=== PATIENT | male | born 2000 | race Caucasian/White ===

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

== ENCOUNTER 2020-03-02 19:50 | Emergency (ER) | payer OTHER ==
[~2020-03-02] VITALS: Ht 177.8 cm; Wt 63.9 kg
[~2020-03-02 19:50] MED LIST: NAPR-683 PO
[2020-03-02 19:58] VITALS: BP 108/70
--- NOTE | 2020-03-02 21:01 | PHYS DOC ---
Past History Past Medical History: No Pertinent History (JERAD WOLF APRN) Past Surgical History: No Surgical History (JERAD WOLF APRN) Smoking: Non-smoker Alcohol Use: Rarely Drug Use: None (JERAD WOLF APRN) General Adult EDM: Chief Complaint: MECHANICAL FALL HPI: HPI: Patient is a 19-year-old male, brought to the emergency department by family member, who presents for evaluation following a syncopal episode. Patient states he had a tattoo to the left side of his chest earlier today he was in the bathroom looking at his tattoo when all of a sudden he began to feel lightheaded. Patient states he left the bathroom and passed out falling forward and hitting his head. Patient reports that his father witnessed the fall. His father told him that he lost consciousness for maybe 5 seconds. The patient denies any nausea, vomiting, vision changes, head, neck, or back pain after the episode. He denies any chest pain or palpitations. Patient denies any recent nausea, vomiting, abdominal pain, headaches, cough, shortness of breath, or fever. He currently denies any pain. (JERAD WOLF APRN) Review of Systems: Review of Systems: Complete ROS is negative unless otherwise noted in HPI. (JERAD WOLF APRN) Allergies: Allergies: Allergies Coded Allergies Type Severity Reaction Last Updated Verified No Known Drug Allergies 02/20/15 No (JERAD WOLF APRN) Physical Exam: PE: See Above Constitutional: Well developed, well nourished, no acute distress, non-toxic appearance. [] HENT: Normocephalic, atraumatic, bilateral external ears normal, nose normal. [] Eyes: PERRLA, EOMI, conjunctiva normal, no discharge. [] Neck: Normal range of motion, no stridor. [] Cardiovascular:Heart rate regular rhythm Lungs & Thorax: Respirations even and unlabored, no retractions, no respiratory distress Abdomen: soft, no tenderness Skin: Warm, dry, no erythema, no rash. [] Extremities: No cyanosis, ROM intact, no edema. [] Neurologic: Alert and oriented X 3, no focal deficits noted. [] Psychologic: Affect normal, judgement normal, mood normal. [] (JERAD WOLF APRN) Current Patient Data: Labs: Laboratory Tests Test 03/02/20 20:49 Glucose (Fingerstick) 105 mg/dL (70-99) H Vital Signs: Vital Signs Date Time Temp Pulse Resp B/P (MAP) Pulse Ox O2 Delivery O2 Flow Rate FiO2 03/02/20 19:58 97.7 73 14 108/70 (83) 99 Room Air (JERAD WOLF APRN) EKG: EK-sinus rhythm rate of 61, no STEMI, read by Dr. Grove[] (JERAD WOLF APRN) Radiology/Procedures: Radiology/Procedures: [] (JERAD WOLF APRN) Heart Score: Risk Factors: Risk Factors: DM, Current or recent (<one month) smoker, HTN, HLP, family history of CAD, obesity. Risk Scores: Score 0 - 3: 2.5% MACE over next 6 weeks - Discharge Home Score 4 - 6: 20.3% MACE over next 6 weeks - Admit for Clinical Observation Score 7 - 10: 72.7% MACE over next 6 weeks - Early Invasive Strategies (JERAD WOLF APRN) Course & Med Decision Making: Course & Med Decision Making Pertinent Labs and Imaging studies reviewed. (See chart for details) 19-year-old male presents emergency room for evaluation following a syncopal episode. Bedside blood glucose was 105, patient's orthostatic blood pressures were normal. Patient's EKG revealed no acute changes. His vital signs were stable throughout his stay and patient tolerated p.o. fluids. Most likely patient had a vasovagal response in the bathroom. Physical exam was not concerning for any cardiac myopathy, CVA, TIA, or intracranial hemorrhage. Patient was provided with information about syncope he was encouraged to follow- up with his primary care doctor next week. Return to the ER if symptoms worsen. Patient verbalized an understanding of home care, medications, follow-up, and return to ED instructions and was in agreement with the plan of care. [] (JERAD WOLF APRN) Course & Med Decision Making I have reviewed the STILL TENDER's note and plan of care. I was available for consultation as needed during the patient's visit in the emergency department. I agree with the clinical impression, plan, and disposition. Hemodynamically stable, well- appearing without any gait instability or other emergent and/or surgical findings. Most likely orthostatic related versus vasovagal in nature (MISA GROVE DO) Dayana Disclaimer: Dayana Disclaimer: This electronic medical record was generated, in whole or in part, using a voice recognition dictation system. (JERAD WOLF APRN) Departure Departure: Impression: Primary Impression: Episode of syncope Qualified Codes: R55 - Syncope and collapse Disposition: 01 DC HOME SELF CARE/HOMELESS Condition: STABLE Referrals: PCP,NO (PCP) Patient Instructions: Syncope, [id number] Additional Instructions: Your blood sugar today was 105. EKG revealed no acute findings. Recommend you rest and follow-up with your primary care doctor next week. Return to the ER if symptoms worsen. JERAD WOLF APRN Mar 02, 2020 21:01 MISA GROVE DO Mar 03, 2020 21:22
--- NOTE | 2020-03-03 06:00 | EKG ---
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
== END 2020-03-02 21:08 | disposition home or self-care (01) ==
LOC: ER 19:50
DX: R55 Syncope and collapse (principal); R42 Dizziness and giddiness; W18.39XA Other fall on same level, initial encounter; Y93.89 Activity, other specified; Y92.89 Other specified places as the place of occurrence of the external cause; Y99.8 Other external cause status
CPT/HCPCS: 82947; 93005; 99284

== ENCOUNTER 2020-03-20 18:06 | Emergency (ER) | payer OTHER ==
[~2020-03-20] VITALS: Ht 177.8 cm; Wt 64.0 kg
--- NOTE | 2020-03-20 19:35 | RAD ---
Exam: Chest one view INDICATION: Difficulty breathing TECHNIQUE: Frontal view of the chest Comparisons: None FINDINGS: The cardiomediastinal silhouette and pulmonary vessels are within normal limits. The lung and pleural spaces are clear. IMPRESSION: No acute cardiopulmonary process. Electronically signed by: Mame Damico MD (03/20/2020 7:32 PM) [facility]
--- NOTE | 2020-03-20 19:43 | PHYS DOC ---
Past History Past Medical History: Other Additional Past Medical Histor: ADHD (JERAD WOLF APRN) Past Surgical History: No Surgical History (JERAD WOLF APRN) Smoking: Non-smoker Alcohol Use: Occasionally Drug Use: None (JERAD WOLF APRN) General Adult EDM: Chief Complaint: CHEST PAIN HPI: HPI: Patient is a 19-year-old male who presents to the emergency department with complaints of a burning sensation in his chest that occurs with a deep breath and is worse when he lays down that began a week ago. He denies any known COVID-19 or influenza exposures. The patient denies any fever, cough, dyspnea, nausea, vomiting, diarrhea, abdominal pain, rash, sore throat, headache, fatigue, body aches, or chills. He denies any palpitations, dizziness, or edema. Patient states at times this discomfort is relieved by burping. He denies any diaphoresis or back pain. Patient denies any recent trauma, travel, or history of blood clots. He currently denies any pain unless he takes a deep breath when he states the pain is a 6 out of 10 on the pain scale. (JERAD WOLF APRN) Review of Systems: Review of Systems: Complete ROS is negative unless otherwise noted in HPI. (JERAD WOLF APRN) Family History: Family History: Denies any family history of cardiac problems (JERAD WOLF APRN) Allergies: Allergies: Allergies Coded Allergies Type Severity Reaction Last Updated Verified No Known Drug Allergies 03/20/20 No (JERAD WOLF APRN) Physical Exam: PE: See Above Constitutional: Well developed, well nourished, no acute distress, non-toxic appearance. [] HENT: Normocephalic, atraumatic, bilateral external ears normal, nose normal. [] Eyes: PERRLA, EOMI, conjunctiva normal, no discharge. [] Neck: Normal range of motion, no stridor. [] Cardiovascular:Heart rate regular rhythm Lungs & Thorax: Respirations even and unlabored, no retractions, no respiratory distress, chest nontender to palpation, speaking full sentences Skin: Warm, dry, no erythema, no rash. [] Extremities: No cyanosis, ROM intact, no edema. [] Neurologic: Alert and oriented X 3, no focal deficits noted. [] Psychologic: Affect normal, judgement normal, mood normal. [] (JERAD WOLF APRN) Current Patient Data: Vital Signs: Vital Signs Date Time Temp Pulse Resp B/P (MAP) Pulse Ox O2 Delivery O2 Flow Rate FiO2 03/20/20 18:29 98.4 75 18 122/84 (97) 97 Room Air (JERAD WOLF APRN) EKG: EKG: [] (JERAD WOLF APRN) Radiology/Procedures: Radiology/Procedures: PROCEDURE: PORTABLE CHEST 1V Exam: Chest one view INDICATION: Difficulty breathing TECHNIQUE: Frontal view of the chest Comparisons: None FINDINGS: The cardiomediastinal silhouette and pulmonary vessels are within normal limits. The lung and pleural spaces are clear. IMPRESSION: No acute cardiopulmonary process.[] (JERAD WOLF APRN) Course & Med Decision Making: Course & Med Decision Making Pertinent Labs and Imaging studies reviewed. (See chart for details) Patient is a 19-year-old male who presents emergency department with complaints of burning sensation in his chest that occurs with deep breaths and lying flat for the last week. His chest x-ray is unremarkable, the patient is PERC negative. Patient was given a GI cocktail in the emergency department he reported relief of the discomfort after taking this medication. The patient had been previously evaluated in this emergency room by myself on March 022019 following a syncopal episode. The patient had a tattoo placed on his chest that day and passed out after looking at the tattoo in the mirror. Patient states that he has not had any dizziness or syncopal episodes following that event. He states he never followed up with his primary care doctor after he was discharged. Prescription was written for omeprazole. The patient was encouraged to call his primary care doctor's office for follow-up in 1 to 2 days. Instructed him to return to the ER if his symptoms worsened or fever develop. Patient verbalized an understanding of home care, medications, follow-up, and return to ED instructions and was in agreement with the plan of care. [] (JERAD WOLF APRN) Dragon Disclaimer: Dragon Disclaimer: This electronic medical record was generated, in whole or in part, using a voice recognition dictation system. (JERAD WOLF APRN) Departure Departure: Impression: Primary Impression: GERD (gastroesophageal reflux disease) Qualified Codes: K21.9 - Gastro-esophageal reflux disease without esophagitis Disposition: HOME SELF CARE/HOMELESS Condition: STABLE Referrals: AVANI PADILLA MD (PCP) Patient Instructions: Diet for Gastroesophageal Reflux Disease, Adult, [id number], Gastroesophageal Reflux Disease, Adult, [id number] Additional Instructions: Fill the prescription and use it as directed. Follow the diet instructions provided. Follow-up with your primary care doctor for repeat evaluation in 1 to 2 days, return to the ER if fever develops or symptoms worsen. Scripts Omeprazole (OMEPRAZOLE) 20 Mg Capsule.dr 20 MG PO DAILY for GERD for 14 Days, #14 CAP 0 Refills Prov: JERAD WOLF APRN 03/20/20 PERC Rule for PE PERC Rule for PE Response (Comments) Value Age > 50: No 0 HR > 100: No 0 Sa02 on room air <95%: No 0 Unilateral leg swelling: No 0 Hemoptysis: No 0 Recent surgery or trauma: No 0 Prior PE or DVT: No 0 Hormone use: No 0 Total 0 Attending Signature Attending Signature I have reviewed the PA/OIL WELL CABLE TOOL DRILLER's note and plan of care. I was available for consultation as needed during the patient's visit in the emergency department. I agree with the clinical impression, plan, and disposition. (NARAYAN LUNDBERG DO) JERAD WOLF APRN Mar 20, 2020 19:43 NARAYAN LUNDBERG DO Mar 21, 2020 03:53
[2020-03-20] MEDS: LIDO:MAALOX 1:1 20 ML SINGLE DOSE. PO ONE (20:04)
[2020-03-20 20:27] VITALS: BP 124/70
[2020-03-20] MEDS ORDERED: OMEP20CA16 PO (20:29)
== END 2020-03-20 20:35 | disposition home or self-care (01) ==
LOC: ER 18:06
DX: K21.9 Gastro-esophageal reflux disease without esophagitis (principal); F90.9 Attention-deficit hyperactivity disorder, unspecified type
CPT/HCPCS: 71045; 99283

== ENCOUNTER 2021-07-26 13:35 | Emergency (ER) | payer OTHER ==
[~2021-07-26] VITALS: Ht 177.8 cm; Wt 64.0 kg
[~2021-07-26 13:35] MED LIST changes: +OMEP20CA16 PO
--- NOTE | 2021-07-26 14:09 | PHYS DOC ---
Past History Past Medical History: Other Additional Past Medical Histor: ADHD Past Surgical History: No Surgical History Smoking: Non-smoker Alcohol Use: Occasionally Drug Use: None General Adult EDM: Chief Complaint: COUGH HPI: HPI: Patient is a 20-year-old male presents with blood in urine and also sputum. Patient states that he noticed blood when he coughed and also blood in his urine yesterday. Denies pain with urination or frequency. No concerns of STDs. Patient denies illegal drug use. No chest pain, shortness of breath, fever, nausea, vomiting, diarrhea. History of tobacco, alcohol use. Review of Systems: Review of Systems: ROS At least 10 ROS systems have been reviewed and are negative except as documented in the HPI. General: Negative except as outlined in HPI above. Skin: Negative except as outlined in HPI above. HEENT: Negative except as outlined in HPI above. Neck: Negative except as outlined in HPI above. Respiratory: Negative except as outlined in HPI above.. Cardiovascular: Negative except as outlined in HPI above. Abdomen: Negative except as outlined in HPI above. : Negative except as outlined in HPI above. Back/MSK: Negative except as outlined in HPI above. Neuro: Negative except as outlined in HPI above. Psych: Negative except as outlined in HPI above. Allergies: Allergies: Allergies Coded Allergies Type Severity Reaction Last Updated Verified No Known Drug Allergies 07/26/21 No Physical Exam: PE: Constitutional: Well developed, well nourished, no acute distress, non-toxic appearance. [] HENT: Normocephalic, bilateral external ears normal, oropharynx moist, no oral exudates, nose normal. [] Eyes: PERRLA, conjunctiva normal, no discharge. [] Neck: Normal range of motion, no tenderness, supple, no stridor. [] Cardiovascular:Heart rate regular rhythm, no murmur [] Lungs & Thorax: Bilateral breath sounds clear to auscultation [] Abdomen: Bowel sounds normal, soft, no tenderness, no masses Skin: Warm, dry, no erythema, no rash. [] Back: No tenderness, no CVA tenderness. [] Extremities: No tenderness, no cyanosis, no clubbing, ROM intact, no edema. [] Neurologic: Alert and oriented X 3, normal motor function, normal sensory function, no focal deficits noted. [] Psychologic: Affect normal, judgement normal, mood normal. [] Current Patient Data: Vital Signs: Vital Signs Date Time Temp Pulse Resp B/P (MAP) Pulse Ox O2 Delivery O2 Flow Rate FiO2 07/26/21 13:48 97.7 95 18 129/94 (106) 98 Room Air EKG: EKG: [] Radiology/Procedures: Radiology/Procedures: []AP and Lateral Views of the Chest 07/26/2021 2:05 PM Indication: Reason: cough / Comparison: None Findings: There is no focal consolidation or infiltrate identified. The cardiomediastinal silhouette is within normal limits. There is no evidence of pneumothorax or pleural effusion. No acute osseous abnormalities are identified. Impression: No evidence of acute cardiopulmonary process. Electronically signed by: Drew Meng MD (07/26/2021 2:35 PM) [id number] Heart Score: C/O Chest Pain: No Risk Factors: Risk Factors: DM, Current or recent (<one month) smoker, HTN, HLP, family history of CAD, obesity. Risk Scores: Score 0 - 3: 2.5% MACE over next 6 weeks - Discharge Home Score 4 - 6: 20.3% MACE over next 6 weeks - Admit for Clinical Observation Score 7 - 10: 72.7% MACE over next 6 weeks - Early Invasive Strategies Course & Med Decision Making: Course & Med Decision Making Pertinent Labs and Imaging studies reviewed. (See chart for details) [] 20-year-old male presents with concerns of blood in urine and sputum. Afebrile. No recent illness. Denies dysuria. Work-up in ER consisted of UA, CBC, BMP, GC chlamydia/urine, chest x-ray. Chest x-ray was unremarkable. All labs unremarkable. UA is negative for infec tion. Discussed all results with patient. Advised patient to follow-up with PCP. Discussed return precautions in length. Patient verbalizes understanding of discharge instructions. Patient is appreciative and okay with discharge plan. Dragon Disclaimer: Dragon Disclaimer: This electronic medical record was generated, in whole or in part, using a voice recognition dictation system. Departure Departure: Impression: Primary Impression: Bloody sputum Additional Impression: Cough Disposition: HOME / SELF CARE / HOMELESS Condition: STABLE Referrals: AVANI PADILLA MD (PCP) Patient Instructions: Hematuria-Brief Additional Instructions: You were seen in the emergency room for concerns of blood in your urine and sputum. All of your labs are unremarkable. Your urine was negative for infection. Please follow-up with your PCP. Return to emergency room for worsening symptoms or concerns such as pain, fever. EMERGENCY DEPARTMENT GENERAL DISCHARGE INSTRUCTIONS Thank you for coming to [facility] (ED) today and trusting us with you care. We trust that you had a positivie experience in our Emergency Department. If you wish to speak to the department management, you may call the director at [phone]. YOUR FOLLOW UP INSTRUCTIONS ARE FOLLOWS: 1. Do you have a private Doctor? If you do not have a private doctor, please ask for a resource list of physicians or clinics that may be able to assist you with follow up care. 2. The Emergency Physician has interpreted your x-rays. The X-Ray specialist will also review them. If there is a change in the findings, you will be notified in 48 hours when at all possible. 3. A lab test or culture has been done, your results will be reviewed and you will be notified if you need a change in treatment. ADDITIONAL INSTRUCTIONS AND INFORMATION: 1. Your care today has been supervised by a physician who is specially trained in emergency care. Many problems require more than one evaluation for a complete diagnosis and treatment. We recommend that you schedule your follow up appointment as recommended to ensure complete treatment of you illness or injury. If you are unable to obtain follow up care and continue to have a problem, or if your condition worsens, we recommend that you return to the ED. 2. We are not able to safely determine your condition over the phone nor are we able to give sound medical advice over the phone. For these safety reasons, if you call for medical advice we will ask you to come to the ED for further evaluation. 3. If you have any questions regarding these discharge instructions please call the ED at [phone]. SAFETY INFORMATION: In the interest of safety, wellness, and injury prevention; we encourage you to wear your sealbelt, if you smoke; quite smoking, and we encourage family to use a protective helmet for bicycling and other sporting events that present an increased risk for head injury. IF YOUR SYMPTOMS WORSEN OR NEW SYMPTOMS DEVELOP, OR YOU HAVE CONCERNS ABOUT YOUR CONDITION; OR IF YOUR CONDITION WORSENS WHILE YOU ARE WAITING FOR YOUR FOLLOW UP APPOINTMENT; EITHER CONTACT YOUR PRIMARY CARE DOCTOR, THE PHYSICIAN WHOSE NAME AND NUMBER YOU WERE GIVEN, OR RETURN TO THE ED IMMEDIATELY. LAMBERTO CAMPBELL APRN Jul 26, 2021 14:09
[2021-07-26 14:25] LABS: BASO % 0 % (0-3); EOS # 0.1 x10^3/uL (0.0-0.7); EOS % 1 % (0-3); HEMATOCRIT 46.3 % (39.0-53.0); HEMOGLOBIN 15.4 g/dL (13.0-17.5); LYMPH # 1.5 x10^3/uL (1.0-4.8); LYMPH % 22 % (24-48); MEAN CORPUSCULAR HEMOGLOBIN 30 pg (25-35); MEAN CORPUSCULAR HGB CONC 33 g/dL (31-37); MEAN CORPUSCULAR VOLUME 89 fL (79-100); MONO # 0.6 x10^3/uL (0.0-1.1); MONO % 9 % (0-9); NEUT # 4.6 x10^3uL (1.8-7.7); NEUT % 67 % (31-73); PLATELET COUNT 245 x10^3/uL (140-400); WHITE BLOOD COUNT 6.9 x10^3/uL (4.0-11.0)
[2021-07-26 14:36] LABS: CALCIUM 9.3 mg/dL (8.5-10.1); CREATININE 0.9 mg/dL (0.7-1.3); GFR 107.6; POTASSIUM 4.4 mmol/L (3.5-5.1)
--- NOTE | 2021-07-26 14:37 | RAD ---
AP and Lateral Views of the Chest 07/26/2021 2:05 PM Indication: Reason: cough / Comparison: None Findings: There is no focal consolidation or infiltrate identified. The cardiomediastinal silhouette is within normal limits. There is no evidence of pneumothorax or pleural effusion. No acute osseous a bnormalities are identified. Impression: No evidence of acute cardiopulmonary process. Electronically signed by: Drew Meng MD (07/26/2021 2:35 PM) [id number]
[2021-07-26 15:00] LABS: CLARITY,URINE CLEAR; COLOR,URINE YELLOW; GLUCOSE,URINE NEG (NEG)
[2021-07-26 15:01] LABS: BACTERIA,URINE 0 /HPF (0-FEW); NITRITE,URINE NEG (NEG); UROBILINOGEN,URINE 0.2 mg/dL (0.2 mg/dL); WBC,URINE 0 /HPF (0-4)
== END 2021-07-26 15:34 | disposition home or self-care (01) ==
LOC: ER 13:35
DX: R04.2 Hemoptysis (principal); R05.9 Cough, unspecified; R31.9 Hematuria, unspecified
CPT/HCPCS: 36415; 71046; 80048; 81001; 85025; 87491; 87591; 99284